=== PATIENT | male | born 1950 ===

== ENCOUNTER 2017-03-09 21:09 | Emergency (ER) | payer MEDICARE ==
[2017-03-09 21:16] VITALS: RESP 18; O2SAT 98
[2017-03-09 21:58] LABS: RBC URINE < 1 /hpf (0-3); URINE BILIRUBIN NEGATIVE (NEGATIVE); URINE BLOOD NEGATIVE (NEGATIVE); URINE COLOR Straw (YELLOW); URINE GLUCOSE (UA) NORMAL (Normal); URINE KETONE NEGATIVE (NEGATIVE); URINE LEUKOCYTE ESTERASE NEG Leu/uL (Negative); URINE PROTEIN NEGATIVE (NEGATIVE); URINE UROBILINOGEN NORMAL mg/dL (0.2-1.0); WBC URINE < 1 /hpf (0-5)
[2017-03-09 21:59] LABS: BASO % 0.9 % (0.0-2.0); EOS # 0.5 K/uL (0.0-0.7); LYMPH # 1.6 K/uL (1.0-4.3); LYMPH % 29.3 % (20.0-40.0); MEAN CELL VOLUME 80.6 fL (80.0-94.0); MEAN CORPUSCULAR HEMOGLOBIN 26.2 pg (27.0-31.0); MEAN CORPUSCULAR HGB CONC 32.5 g/dL (33.0-37.0); MONO # 0.4 K/uL (0.0-0.8); MONO % 7.6 % (0.0-10.0); NRBC % 0.1 % (0.0-2.0); RED CELL DISTRIBUTION WIDTH 14.1 % (11.5-14.5); WHITE BLOOD COUNT 5.4 K/uL (4.8-10.8)
[2017-03-09 22:02] LABS: CHLORIDE 105 mmol/L (98-107); POTASSIUM 3.9 mmol/L (3.6-5.2); SODIUM 140 mmol/L (132-148)
[2017-03-09 22:04] LABS: ALB/GLOB RATIO 1.5 (1.0-2.1); AST/SGOT 20 U/L (17-59); BILIRUBIN,TOTAL 0.6 mg/dL (0.2-1.3); CARBON DIOXIDE 25 mmol/L (22-30); GFR AFRICAN-AMERICAN > 60; TOTAL PROTEIN 7.2 g/dL (6.3-8.3)
[2017-03-09 22:05] LABS: ALKALINE PHOSPHATASE 96 U/L (38-126); ALT/SGPT 29 U/L (21-72); BLOOD UREA NITROGEN 18 mg/dL (9-20); GLUCOSE,RANDOM 116 mg/dL (75-110)
[2017-03-09 22:19] LABS: INR 0.9
--- NOTE | 2017-03-09 23:00 | US ---
EXAM: US Abdomen Limited, Right Upper Quadrant EXAM DATE/TIME: 03/09/2017 9:41 PM CLINICAL HISTORY: 66 years old, male; Pain; Abdominal pain; Additional info: Ruq pain TECHNIQUE: Real-time ultrasound of the right upper quadrant with image documentation. COMPARISON: No relevant prior studies available. FINDINGS: There is a negative sonographic Banks's sign per chemistry technologist. Gallstones are present. No pericholecystic fluid. The gallbladder wall measures 2 mm which is within normal limits. The common bile duct measures 3 mm which is within normal limits. No hepatic masses. The pancreas is suboptimally visualized. No right hydronephrosis. Right kidney measures approximately 11 cm in length. The proximal aorta measures 2.4 cm in diameter. IMPRESSION: Cholelithiasis without evidence of cholecystitis.
--- NOTE | 2017-03-09 23:19 | C.PDOC ---
Time Seen by Provider: 03/09/17 21:32 Chief Complaint (Nursing): Abdominal Pain History Per: Patient, Family (daughter) Onset/Duration Of Symptoms: Days (few), Intermittent Episodes Current Symptoms Are (Timing): Still Present Severity: Moderate Location Of Pain/Discomfort: RUQ Quality Of Discomfort: "Pain" Associated Symptoms: Nausea Exacerbating Factors: Food Alleviating Factors: None Additional History Per: Prior Records Past Medical History Reviewed: Historical Data, Nursing Documentation, Vital Signs Vital Signs: Last Vital Signs Temp 97.7 F 03/09/17 21:12 Pulse 97 H 03/09/17 21:12 Resp 18 03/09/17 21:12 BP 188/86 H 03/09/17 21:12 Pulse Ox 98 03/09/17 21:12 - Medical History PMH: HTN Family History: States: Unknown Family Hx - Social History Hx Alcohol Use: No Hx Substance Use: No - Immunization History Hx Tetanus Toxoid Vaccination: No Hx Influenza Vaccination: No Hx Pneumococcal Vaccination: No Review Of Systems Except As Marked, All Systems Reviewed And Found Negative. Constitutional: Negative for: Fever, Weakness Cardiovascular: Negative for: Chest Pain Respiratory: Negative for: Shortness of Breath Gastrointestinal: Positive for: Abdominal Pain. Negative for: Vomiting, Diarrhea Genitourinary: Negative for: Dysuria Musculoskeletal: Negative for: Neck Pain, Back Pain Skin: Negative for: Rash Neurological: Negative for: Weakness, Numbness Physical Exam - Physical Exam Appears: Non-toxic, No Acute Distress Skin: Normal Color, Warm, Dry, No Rash Head: Atraumatic, Normacephalic Eye(s): bilateral: PERRL, EOMI Neck: Normal ROM, Supple Cardiovascular: Rhythm Regular Respiratory: Normal Breath Sounds, No Accessory Muscle Use Gastrointestinal/Abdominal: Soft, Tenderness (RUQ), No Guarding, No Rebound Back: No CVA Tenderness Extremity: Normal ROM, No Calf Tenderness Neurological/Psych: Oriented x3, Normal Motor, Normal Sensation ED Course And Treatment - Laboratory Results Result Diagrams: 03/09/17 21:49 03/09/17 21:49 Lab Interpretation: No Acute Changes O2 Sat by Pulse Oximetry: 98 Pulse Ox Interpretation: Normal - Radiology CXR: Interpreted by Me, Viewed By Me CXR Interpretation: Yes: No Acute Disease - CT Scan/US RUQ Sono Other Rad Studies (CT/US): Read By Radiologist, Radiology Report Reviewed CT/US Interpretation: IMPRESSION: . Cholelithiasis without evidence of cholecystitis. Progress Note: Pain resolved Reassessment Condition: Improved Disposition Counseled Patient/Family Regarding: Studies Performed, Diagnosis, Need For Followup - Disposition Referrals: Sage Shoemaker [Staff Provider] - Janell Garcia MD [Staff Provider] - Disposition: HOME/ ROUTINE Disposition Time: 23:20 Condition: IMPROVED Additional Instructions: Follow up with your primary doctor and a General Surgeon for further evaluation and treatment. Return to the ER if you develop fever, vomiting, worsening of symptoms or if you have any other concerns. Instructions: Biliary Colic (ED) Forms: [employer] (U[place]ayan) Print Language: FRISIAN - Clinical Impression Clinical Impression: Biliary colic
[2017-03-09 23:28] VITALS: BP 175/81; PULSE 74; TEMP 98.6
--- NOTE | 2017-03-10 07:20 | RAD ---
HISTORY: RUQ pain COMPARISON: No prior. FINDINGS: LUNGS: There is no infiltrate identified bilaterally. Left hemidiaphragm appears elevated the exam is slightly underpenetrated accentuating the reticular markings bilaterally. Mammillation of the right hemidiaphragm is apparent. PLEURA: No significant pleural effusion identified, no pneumothorax apparent. CARDIOVASCULAR: Prominent cardiac silhouette is appreciated. No pulmonary vascular derangement identified. OSSEOUS STRUCTURES: No significant abnormalities. VISUALIZED UPPER ABDOMEN: Normal. OTHER FINDINGS: None. IMPRESSION: No acute alveolar infiltrate or pleural effusion identified. Elevation of the left hemidiaphragm is identified of uncertain etiology.
== END 2017-03-09 23:29 | disposition home or self-care (01) ==
LOC: C.ER 21:09
DX: K80.50 Calculus of bile duct without cholangitis or cholecystitis without obstruction (principal)
CPT/HCPCS: 71010; 76705; 80053; 81001; 83690; 85025; 85610; 85730; 96374; 96375; 99285; J2405